=== PATIENT | male | born 1960 | race Caucasian/White ===

== ENCOUNTER 2021-04-29 06:54 | Emergency (ER) | payer BC ==
[2021-04-29] MEDS ORDERED: Ketorolac 30 MG/ML SDV IVPUSH ONE (07:10)
[2021-04-29] MEDS ORDERED: Ondansetron 4 MG/2 ML SDV IVPUSH ONE ×2 (07:11→10:02)
[2021-04-29] MEDS ORDERED: Sodium Chloride 0.9% 1,000 ML IV SCH (09:30)
[2021-04-29] MEDS ORDERED: Morphine 4 MG/ML VIAL IVPUSH ONE (10:02)
== END 2021-04-29 10:35 | disposition home or self-care (01) ==
LOC: FB.ED 06:54
DX: N13.2 Hydronephrosis with renal and ureteral calculous obstruction (principal); E86.0 Dehydration; I10 Essential (primary) hypertension
CPT/HCPCS: 36415; 74176; 80053; 81001; 85025; 86140; 96374; 96375; 99283; 99284-25; J1885; J2270; J2405; J7030